=== PATIENT | female | born 1995 | race Caucasian/White ===

== ENCOUNTER 2020-11-01 03:58 | Emergency (ER) | payer BC ==
[2020-11-01] MEDS ORDERED: Ketorolac 60 MG/2 ML SDV IM ONE (04:21)
[2020-11-01] MEDS ORDERED: HYDROmorphone 1 MG/ML Syringe IM ONE (04:21)
--- NOTE | 2020-11-01 04:26 | EDM.PDOC ---
ED HPI GENERAL MEDICAL PROBLEM - General Chief Complaint: Back Pain or Injury Stated Complaint: RT LEG PAIN AND BACK PAIN Time Seen by Provider: 11/01/20 04:16 Source of Information: Reports: Patient History Limitations: Reports: No Limitations - History of Present Illness INITIAL COMMENTS - FREE TEXT/NARRATIVE: The patient presents with right sided low back pain with sciatica. This has been going on for about 1.5months. She did not hurt her back initially. She has some numbness in her leg. She has no weakness. She was given ibuprofen and cyclobenzaprine. The cyclobenzaprine knocks her out. She does not have a primary care doctor yet. Onset: Gradual Duration: Week(s): (6) Location: Reports: Back Quality: Reports: Sharp Severity: Severe Improves with: Reports: Immobilization Worsens with: Reports: Movement Context: Denies: Trauma Associated Symptoms: Reports: No Other Symptoms Back Pain Score (Numeric/FACES): 7 - Related Data Allergies Allergy/AdvReac Type Severity Reaction Status Date / Time No Known Allergies Allergy Verified 11/01/20 04:24 Home Meds: Home Meds Orphenadrine [Norflex] 100 mg PO BID PRN #20 tab 11/01/20 [Rx] Past Medical History Musculoskeletal History: Reports: Back Pain, Chronic - Past Surgical History Female Surgical History: Reports: Section Social & Family History - Tobacco Use Tobacco Use Status *Q: Unknown Ever Used Tobacco ED ROS GENERAL - Review of Systems Review Of Systems: See Below Constitutional: Reports: No Symptoms HEENT: Reports: No Symptoms Respiratory: Reports: No Symptoms Cardiovascular: Reports: No Symptoms Endocrine: Reports: No Symptoms GI/Abdominal: Reports: No Symptoms : Reports: No Symptoms Musculoskeletal: Reports: Back Pain ED EXAM,LOWER BACK PAIN/INJURY - Physical Exam Exam: See Below Exam Limited By: No Limitations General Appearance: Alert, No Apparent Distress Ears: Normal External Exam Nose: Normal Inspection Head: Atraumatic, Normocephalic Neck: Normal Inspection Respiratory/Chest: No Respiratory Distress, Lungs Clear, Normal Breath Sounds Cardiovascular: Regular Rate, Rhythm, No Edema, No Murmur GI/Abdominal: Soft, Non-Tender, No Organomegaly, No Mass Back Exam: Other (Pain upon palpation to the right low back.) Neurological: Alert, No Motor/Sensory Deficits, Oriented x 3 Course - Vital Signs Last Recorded V/S: Last Vital Signs Temp 97.8 F 11/01/20 04:09 Pulse 100 11/01/20 04:09 Resp BP 129/90 11/01/20 04:09 Pulse Ox 97 11/01/20 04:09 - Orders/Labs/Meds Meds: Medications Discontinued Medications Generic Name Dose Route Start Last Admin Trade Name Freq PRN Reason Stop Dose Admin Hydromorphone HCl 1 mg 11/01/20 04:21 11/01/20 04:30 Hydromorphone 1 Mg/Ml Syringe IM 11/01/20 04:22 1 mg ONETIME ONE Administration Ketorolac Tromethamine 60 mg 11/01/20 04:21 11/01/20 04:29 Ketorolac 60 Mg/2 Ml Sdv IM 11/01/20 04:22 60 mg ONETIME ONE Administration - Re-Assessments/Exams Free Text/Narrative Re-Assessment/Exam: 11/01/20 04:25 I ordered dilaudid 1mg IM and toradol 60mg IM. 11/01/20 05:12 She feels a little better. I will give her a different muscle relaxer and see if that helps. Departure - Departure Time of Disposition: 05:20 Disposition: Home, Self-Care 01 Condition: Good Clinical Impression: Sciatica Qualifiers: Laterality: right Qualified Code(s): M54.31 - Sciatica, right side - Discharge Information *PRESCRIPTION DRUG MONITORING PROGRAM REVIEWED*: Not Applicable *COPY OF PRESCRIPTION DRUG MONITORING REPORT IN PATIENT KATHY: Not Applicable Prescriptions: Orphenadrine [Norflex] 100 mg PO BID PRN #20 tab PRN Reason: Pain Referrals: PCP,None [Primary Care Provider] - Beba Marques MD [Physician] - 1 Week Forms: ED Department Discharge Additional Instructions: Stop taking the cyclobenzaprine and try the norflex. Follow up with your chiropractor and Dr Marques. Keep taking the ibuprofen. Please return if you are worse. Sepsis Event Note (ED) - Evaluation Sepsis Screening Result: No Definite Risk - Focused Exam Vital Signs: Vital Signs Temp Pulse BP Pulse Ox 11/01/20 04:09 97.8 F 100 129/90 97
== END 2020-11-01 05:23 | disposition home or self-care (01) ==
LOC: JD.ED 03:58
DX: M54.41 Lumbago with sciatica, right side (principal)
CPT/HCPCS: 96372; 99283; J1170; J1885

== ENCOUNTER 2021-02-18 10:21 | Emergency (ER) | payer BC ==
[2021-02-18] MEDS ORDERED: Sodium Chloride 0.9% 10 ML Syringe FLUSH PRN (11:19)
--- NOTE | 2021-02-18 11:54 | EDM.PDOC ---
ED HPI GENERAL MEDICAL PROBLEM - General Chief Complaint: Respiratory Problem Stated Complaint: COVID +/WORSENING SYMPTOMS Time Seen by Provider: 02/18/21 11:07 Source of Information: Reports: Patient History Limitations: Reports: No Limitations - History of Present Illness INITIAL COMMENTS - FREE TEXT/NARRATIVE: 25-year-old female presents the emergency department today with complaints of worsening Covid symptoms requesting monoclonal antibody treatment. Per the patient's report she tested positive for Covid yesterday. She has not had her Covid vaccine. She states she developed symptoms of Covid day before yesterday. She states she has had progressively worsening cough, shortness of breath, congestion, fever, chills and low backache. She denies any smoking history. She denies any pertinent medical history other than taking meloxicam for sciatic pain. Her primary care provider is Rohini Daniels Generalized Pain Score (Numeric/FACES): 5 - Related Data Allergies Allergy/AdvReac Type Severity Reaction Status Date / Time No Known Allergies Allergy Verified 02/18/21 10:44 Home Meds: Home Meds Meloxicam 15 mg PO DAILY 02/18/21 [History] Past Medical History - Past Health History Medical/Surgical History: Denies Medical/Surgical History Musculoskeletal History: Reports: Back Pain, Chronic - Infectious Disease History Infectious Disease History: Reports: Novel Coronavirus - Past Surgical History Female Surgical History: Reports: Section Social & Family History - Tobacco Use Tobacco Use Status *Q: Never Tobacco User Second Hand Smoke Exposure: No - Caffeine Use Caffeine Use: Reports: Coffee - Recreational Drug Use Recreational Drug Use: No ED ROS GENERAL - Review of Systems Review Of Systems: Comprehensive ROS is negative, except as noted in HPI. ED EXAM, GENERAL - Physical Exam Exam: See Below Exam Limited By: No Limitations General Appearance: Alert, WD/WN, No Apparent Distress Ears: Normal External Exam, Hearing Grossly Normal Nose: Normal Inspection Throat/Mouth: Normal Inspection, Normal Lips, Normal Voice, No Airway Compromise Head: Atraumatic Neck: Normal Inspection, Supple Respiratory/Chest: No Respiratory Distress, Normal Breath Sounds, No Accessory Muscle Use, Chest Non-Tender, Crackles (Fine crackles noted to bilateral bases) Cardiovascular: Normal Peripheral Pulses, Regular Rate, Rhythm, No Edema, No Murmur Peripheral Pulses: 2+: Radial (L), Radial (R) GI/Abdominal: Normal Bowel Sounds, Soft, Non-Tender, No Distention (Female) Exam: Deferred Rectal (Female) Exam: Deferred Back Exam: Normal Inspection Extremities: Normal Inspection Neurological: Alert, Oriented, Normal Cognition Psychiatric: Normal Affect, Normal Mood Skin Exam: Warm, Intact, Normal Color, No Rash, Diaphoretic Lymphatic: No Adenopathy Course - Vital Signs Text/Narrative:: As stated above, patient presents with worsening Covid symptoms and is requesting monoclonal antibody treatment. Upon exam, patient does have fine crackles noted at bilateral bases. She does appear mildly dyspneic at rest however she is hemodynamically stable with O2 saturations at 98%. Physical exam is otherwise unremarkable. Will obtain lab studies to include a CBC, CMP, magnesium, C-reactive protein and a D-dimer. We will also obtain qualitative serum test. Once that is resulted we will obtain a portable chest x- ray. Patient has received information on monoclonal antibody treatment and we will proceed with this once all studies have returned. Last Recorded V/S: Last Vital Signs Temp 98.2 F 02/18/21 10:43 Pulse 118 H 02/18/21 10:43 Resp 20 02/18/21 10:43 BP 167/100 H 02/18/21 10:43 Pulse Ox 98 02/18/21 10:43 - Orders/Labs/Meds Orders: Active Orders 24 hr Category Date Time Status Vital Signs [RC] Q15M Care 02/18/21 12:26 Active Chest 1V Frontal [CR] Stat Exams 02/18/21 12:03 Taken EPINEPHrine [Adrenalin] Med 02/18/21 12:26 Active 0.3 mg IM ASDIRECTED PRN Famotidine [Pepcid] Med 02/18/21 12:26 Active 20 mg IVPUSH ASDIRECTED PRN Sodium Chloride 0.9% [Saline Flush] Med 02/18/21 11:19 Active 10 ml FLUSH ASDIRECTED PRN Sodium Chloride 0.9% [Saline Flush] Med 02/18/21 12:30 Active 30 ml FLUSH ASDIRECTED diphenhydrAMINE [Benadryl] Med 02/18/21 12:26 Active 50 mg IVPUSH ASDIRECTED PRN methylPREDNISolone Sod Succ [Solu-MEDROL] Med 02/18/21 12:26 Active 125 mg IVPUSH ASDIRECTED PRN Saline Lock Insert [OM.PC] Stat Ot 02/18/21 11:19 Ordered Medication Orders Diphenhydramine HCl (Diphenhydramine 50 Mg/Ml Sdv) 50 mg IVPUSH ASDIRECTED PRN PRN Reason: hypersensitivity reaction Epinephrine HCl (Epinephrine 1 Mg/Ml Sdv) 0.3 mg IM ASDIRECTED PRN PRN Reason: hypersensitivity reaction Famotidine (Famotidine 20 Mg/2 Ml Sdv) 20 mg IVPUSH ASDIRECTED PRN PRN Reason: hypersensitivity reaction Methylprednisolone Sodium Succinate (Methylprednisolone Sodium Succinate 125 Mg/2 Ml Sdv) 125 mg IVPUSH ASDIRECTED PRN PRN Reason: hypersensitivity reaction Sodium Chloride (Sodium Chloride 0.9% 10 Ml Syringe) 10 ml FLUSH ASDIRECTED PRN PRN Reason: Keep Vein Open Last Admin: 02/18/21 11:49 Dose: 10 ml Documented by: DAVID Sodium Chloride (Sodium Chloride 0.9% 10 Ml Syringe) 30 ml FLUSH ASDIRECTED MAR Labs: Laboratory Tests 02/18/21 02/18/21 02/18/21 Range/Units 10:40 10:40 10:40 WBC 7.64 (3.98-10.04) K/mm3 RBC 4.45 (3.98-5.22) M/mm3 Hgb 12.9 (11.2-15.7) gm/dl Hct 39.0 (34.1-44.9) % MCV 87.6 (79.4-94.8) fl MCH 29.0 (25.6-32.2) pg MCHC 33.1 (32.2-35.5) g/dl RDW Std Deviation 41.7 (36.4-46.3) fL Plt Count 224 (182-369) K/mm3 MPV 9.8 (9.4-12.3) fl Neut % (Auto) 79.6 H (34.0-71.1) % Lymph % (Auto) 11.6 L (19.3-51.7) % [place] % (Auto) 8.6 (4.7-12.5) % Eos % (Auto) 0.1 L (0.7-5.8) Baso % (Auto) 0.0 L (0.1-1.2) % Neut # (Auto) 6.07 (1.56-6.13) K/mm3 Lymph # (Auto) 0.89 L (1.18-3.74) K/mm3 [place] # (Auto) 0.66 H (0.24-0.36) K/mm3 Eos # (Auto) 0.01 L (0.04-0.36) K/mm3 Baso # (Auto) 0.00 L (0.01-0.08) K/mm3 D-Dimer, Quantitative 0.69 H (0.19-0.50) mg/L Sodium (136-145) mEq/L Potassium (3.5-5.1) mEq/L Chloride (98-107) mEq/L Carbon Dioxide (21-32) mEq/L Anion Gap (5-15) BUN (7-18) mg/dL Creatinine (0.55-1.02) mg/dL Est Cr Clr Drug Dosing mL/min Estimated GFR (MDRD) (>60) mL/min BUN/Creatinine Ratio (14-18) Glucose (70-99) mg/dL Calcium (8.5-10.1) mg/dL Magnesium (1.8-2.4) mg/dL Total Bilirubin (0.2-1.0) mg/dL AST (15-37) U/L ALT (14-59) U/L Alkaline Phosphatase (46-116) U/L C-Reactive Protein (<1.0) mg/dL Total Protein (6.4-8.2) g/dl Albumin (3.4-5.0) g/dl Globulin gm/dL Albumin/Globulin Ratio (1-2) HCG, Qual Negative (NEGATIVE) 02/18/21 Range/Units 10:40 WBC (3.98-10.04) K/mm3 RBC (3.98-5.22) M/mm3 Hgb (11.2-15.7) gm/dl Hct (34.1-44.9) % MCV (79.4-94.8) fl MCH (25.6-32.2) pg MCHC (32.2-35.5) g/dl RDW Std Deviation (36.4-46.3) fL Plt Count (182-369) K/mm3 MPV (9.4-12.3) fl Neut % (Auto) (34.0-71.1) % Lymph % (Auto) (19.3-51.7) % [place] % (Auto) (4.7-12.5) % Eos % (Auto) (0.7-5.8) Baso % (Auto) (0.1-1.2) % Neut # (Auto) (1.56-6.13) K/mm3 Lymph # (Auto) (1.18-3.74) K/mm3 [place] # (Auto) (0.24-0.36) K/mm3 Eos # (Auto) (0.04-0.36) K/mm3 Baso # (Auto) (0.01-0.08) K/mm3 D-Dimer, Quantitative (0.19-0.50) mg/L Sodium 136 (136-145) mEq/L Potassium 3.5 (3.5-5.1) mEq/L Chloride 103 (98-107) mEq/L Carbon Dioxide 23 (21-32) mEq/L Anion Gap 13.5 (5-15) BUN 8 (7-18) mg/dL Creatinine 0.9 (0.55-1.02) mg/dL Est Cr Clr Drug Dosing 96.39 mL/min Estimated GFR (MDRD) > 60 (>60) mL/min BUN/Creatinine Ratio 8.9 L (14-18) Glucose 128 H (70-99) mg/dL Calcium 8.5 (8.5-10.1) mg/dL Magnesium 2.0 (1.8-2.4) mg/dL Total Bilirubin 0.5 (0.2-1.0) mg/dL AST 16 (15-37) U/L ALT 31 (14-59) U/L Alkaline Phosphatase 55 (46-116) U/L C-Reactive Protein 8.8 H* (<1.0) mg/dL Total Protein 7.6 (6.4-8.2) g/dl Albumin 3.6 (3.4-5.0) g/dl Globulin 4.0 gm/dL Albumin/Globulin Ratio 0.9 L (1-2) HCG, Qual (NEGATIVE) Meds: Medications Generic Name Dose Route Start Last Admin Trade Name Freq PRN Reason Stop Dose Admin Diphenhydramine HCl 50 mg 02/18/21 12:26 Diphenhydramine 50 Mg/Ml Sdv IVPUSH ASDIRECTED PRN hypersensitivity reaction Epinephrine HCl 0.3 mg 02/18/21 12:26 Epinephrine 1 Mg/Ml Sdv IM ASDIRECTED PRN hypersensitivity reaction Famotidine 20 mg 02/18/21 12:26 Famotidine 20 Mg/2 Ml Sdv IVPUSH ASDIRECTED PRN hypersensitivity reaction Methylprednisolone Sodium Succinate 125 mg 02/18/21 12:26 Methylprednisolone Sodium Succinate 125 Mg/2 Ml Sdv IVPUSH ASDIRECTED PRN hypersensitivity reaction Sodium Chloride 10 ml 02/18/21 11:19 02/18/21 11:49 Sodium Chloride 0.9% 10 Ml Syringe FLUSH 10 ml ASDIRECTED PRN Administration Keep Vein Open Sodium Chloride 30 ml 02/18/21 12:30 Sodium Chloride 0.9% 10 Ml Syringe FLUSH ASDIRECTED MAR Discontinued Medications Generic Name Dose Route Start Last Admin Trade Name Freq PRN Reason Stop Dose Admin CASIRIVIMAB/IMDEVIMAB 10 ml/ 110 mls @ 220 mls/hr 02/18/21 12:26 02/18/21 12:58 Sodium Chloride IV 02/18/21 12:55 220 mls/hr ONETIME ONE Administration - Re-Assessments/Exams Free Text/Narrative Re-Assessment/Exam: 02/18/21 12:25 Nothing acute is appreciated on portable chest x-ray. Formal radiologist report is pending. I spoke with the patient to provide information about Regeneron treatment for herself. I offered her the patient and caregiver [employer] fax sheet to read and review. I stated the drug has been approved by an emergency use authorization process and has not been fully FDA approved or reviewed. The patient meets the EUA requirements. I discussed there are other potential treatment options that are currently not FDA approved to treat COVID-19. Offered opportunity to ask questions and all questions were answered. The patient voiced understanding and agreed to proceed with the treatment for herself. 02/18/21 12:27 Lab studies reveal a WBC of 7.64, hemoglobin 12.9, hematocrit 39.0, platelet count 224, D-dimer 0.69, sodium 136, potassium 3.5, anion gap 13.5, BUN 8, creatinine 0.9, GFR greater than 60, glucose 128, C-reactive protein 8.8 10/30/21 14:36 Patient did receive monoclonal antibody treatment and was observed for 1 hour after. She tolerated the infusion well. She will be discharged home. Departure - Departure Time of Disposition: 14:37 Disposition: Home, Self-Care 01 Condition: Good Clinical Impression: COVID-19 - Discharge Information Referrals: Rohini Daniels NP [Primary Care Provider] - Forms: ED Department Discharge Additional Instructions: You were seen in the emergency department today with worsening Covid symptoms. Lab studies were completed which were unremarkable. Chest x-ray was also unremarkable, there does not appear to be any signs of pneumonia in your lungs thus far that is common with Covid. You did receive antibody treatment while in the emergency department and tolerated it well. You do need to continue with quarantine for 10 full days. Be sure to get plenty of rest and drink plenty of fluids. May take Tylenol or ibuprofen for fever or body aches. Sepsis Event Note (ED) - Focused Exam Vital Signs: Vital Signs Temp Pulse Resp BP Pulse Ox 02/18/21 10:43 98.2 F 118 H 20 167/100 H 98 - My Orders Last 24 Hours: My Active Orders 02/18/21 11:19 Sodium Chloride 0.9% [Saline Flush] 10 ml FLUSH ASDIRECTED PRN Saline Lock Insert [OM.PC] Stat 02/18/21 12:03 Chest 1V Frontal [CR] Stat 02/18/21 12:26 Vital Signs [RC] Q15M EPINEPHrine [Adrenalin] 0.3 mg IM ASDIRECTED PRN Famotidine [Pepcid] 20 mg IVPUSH ASDIRECTED PRN diphenhydrAMINE [Benadryl] 50 mg IVPUSH ASDIRECTED PRN methylPREDNISolone Sod Succ [Solu-MEDROL] 125 mg IVPUSH ASDIRECTED PRN 02/18/21 12:30 Sodium Chloride 0.9% [Saline Flush] 30 ml FLUSH ASDIRECTED - Assessment/Plan Last 24 Hours: My Active Orders 02/18/21 11:19 Sodium Chloride 0.9% [Saline Flush] 10 ml FLUSH ASDIRECTED PRN Saline Lock Insert [OM.PC] Stat 02/18/21 12:03 Chest 1V Frontal [CR] Stat 02/18/21 12:26 Vital Signs [RC] Q15M EPINEPHrine [Adrenalin] 0.3 mg IM ASDIRECTED PRN Famotidine [Pepcid] 20 mg IVPUSH ASDIRECTED PRN diphenhydrAMINE [Benadryl] 50 mg IVPUSH ASDIRECTED PRN methylPREDNISolone Sod Succ [Solu-MEDROL] 125 mg IVPUSH ASDIRECTED PRN 02/18/21 12:30 Sodium Chloride 0.9% [Saline Flush] 30 ml FLUSH ASDIRECTED
[2021-02-18] MEDS ORDERED: methylPREDNISolone Sodium Succinate 125 MG/2 ML SDV IVPUSH PRN (12:26)
[2021-02-18] MEDS ORDERED: Famotidine 20 MG/2 ML SDV IVPUSH PRN (12:26)
[2021-02-18] MEDS ORDERED: EPINEPHrine 1 MG/ML SDV IM PRN (12:26)
[2021-02-18] MEDS ORDERED: diphenhydrAMINE 50 MG/ML SDV IVPUSH PRN (12:26)
[2021-02-18] MEDS ORDERED: Sodium Chloride 0.9% 10 ML Syringe FLUSH SCH (12:30)
--- NOTE | 2021-02-19 08:10 | CR ---
Chest: Portable view of the chest was obtained. Comparison: No prior chest imaging is available. Heart size and mediastinum are normal. Lungs are clear with no acute parenchymal change. Bony structures are grossly intact. Impression: 1. Nothing acute is seen on frontal chest x-ray. Diagnostic code #1
== END 2021-02-18 14:52 | disposition home or self-care (01) ==
LOC: JD.ED 10:21
DX: U07.1 COVID-19 (principal)
CPT/HCPCS: 36415; 71045; 80053; 83735; 84703; 85025; 85379; 86140; 99285; M0243; Q0243

== ENCOUNTER 2022-04-04 08:00 | Inpatient (IN) | payer BC ==
[2022-04-06] MEDS ORDERED: Sodium Chloride 0.9% 10 ML Syringe FLUSH PRN (01:55)
[2022-04-06] MEDS ORDERED: Oxytocin/Lactated Ringers 10 UNIT/1,000 ML BAG IV SCH (02:00)
[2022-04-06] MEDS ORDERED: Lactated Ringers 1,000 ML IV SCH (05:00)
[2022-04-06] MEDS ORDERED: Metoclopramide 10 MG/2 ML SDV IVPUSH ONE (06:30)
[2022-04-06] MEDS ORDERED: Citric Acid/Sodium Citrate Solution 30 ML Cup PO ONE (06:30)
[2022-04-06] MEDS ORDERED: ceFAZolin 2 GM in Sodium Chloride 0.9% 50 ML IV ONE (07:00)
[2022-04-06] MEDS ORDERED: Metoclopramide 10 MG/2 ML SDV ONE (07:13)
[2022-04-06] MEDS ORDERED: Citric Acid/Sodium Citrate Solution 30 ML Cup ONE (07:13)
[2022-04-06] MEDS ORDERED: Lactated Ringers 1,000 ML ONE ×2 (07:14→08:17)
[2022-04-06] MEDS ORDERED: Bupivacaine 0.5% 30 ML SDV ONE (07:18)
[2022-04-06] MEDS ORDERED: Morphine PF 10 MG/10 ML SDV ONE (07:32)
[2022-04-06] MEDS ORDERED: fentaNYL 100 MCG/2 ML SDV ONE (07:32)
[2022-04-06] MEDS ORDERED: ceFAZolin 2 GM Vial ONE (07:34)
[2022-04-06] MEDS ORDERED: Phenylephrine HCl In 0.9% NaCl 1 MG/10 ML Vial ONE (07:58)
[2022-04-06] MEDS ORDERED: Oxytocin 10 Units/1 ML SDV ONE (08:09)
[2022-04-06] MEDS ORDERED: diphenhydrAMINE 50 MG/ML SDV IVPUSH PRN ×2 (08:32→11:32)
[2022-04-06] MEDS ORDERED: fentaNYL 100 MCG/2 ML SDV IVPUSH PRN (08:32)
[2022-04-06] MEDS ORDERED: Ondansetron 4 MG/2 ML SDV IVPUSH PRN (08:32)
[2022-04-06] MEDS ORDERED: Ondansetron 4 MG/2 ML SDV ONE (08:37)
[2022-04-06] MEDS ORDERED: Ketorolac 30 MG/ML SDV ONE (08:37)
[2022-04-06] MEDS ORDERED: ePHEDrine 50 MG/ML SDV IVPUSH PRN (11:32)
[2022-04-06] MEDS ORDERED: Acetaminophen/oxyCODONE 325-5 MG Tab PO PRN (11:32)
[2022-04-06] MEDS ORDERED: Dextrose 5%-Lactated Ringers 1,000 ML IV SCH (11:32)
[2022-04-06] MEDS ORDERED: Naloxone 0.4 MG/ML SDV IVPUSH PRN (11:32)
[2022-04-06] MEDS ORDERED: Ondansetron 4 MG/2 ML SDV IV PRN (11:32)
[2022-04-06] MEDS ORDERED: Docusate Sodium 100 MG Cap PO PRN (11:32)
[2022-04-06] MEDS: Simethicone 80 MG Tab.Chew PO SCH ×3 (13:27→21:16)
[2022-04-06] MEDS: Ibuprofen 800 MG Tab PO SCH ×2 (14:50→21:15)
[2022-04-07] MEDS: Ibuprofen 800 MG Tab PO SCH ×3 (05:47→22:47)
[2022-04-07] MEDS: Simethicone 80 MG Tab.Chew PO SCH ×4 (10:48→21:28)
[2022-04-07] MEDS: Prenatal Multivitamin with Calcium/Folic Acid/Iron Tab PO SCH (10:48)
[2022-04-07] MEDS: Acetaminophen/oxyCODONE 325-5 MG Tab PO PRN ×2 (12:38→22:57)
[2022-04-08] MEDS: Ibuprofen 800 MG Tab PO SCH (06:19)
[2022-04-08] MEDS: Acetaminophen/oxyCODONE 325-5 MG Tab PO PRN (07:56)
[2022-04-08] MEDS: Simethicone 80 MG Tab.Chew PO SCH (08:03)
[2022-04-08] MEDS: Prenatal Multivitamin with Calcium/Folic Acid/Iron Tab PO SCH (08:03)
== END 2022-04-08 10:15 | disposition home or self-care (01) | DRG 540 ==
LOC: JD.OB 04-06 05:34
PROVIDERS: ADMIT Obstetrics & Gynecology; ATTEND Obstetrics & Gynecology
PROC: 10D00Z1 Extraction of Products of Conception, Low, Open Approach (ICD-10-PCS; principal; 2022-04-06)
DX: O34.211 Maternal care for low transverse scar from previous cesarean delivery (principal); G89.29 Other chronic pain; M54.9 Dorsalgia, unspecified; O99.214 Obesity complicating childbirth; Z3A.39 39 weeks gestation of pregnancy; Z37.0 Single live birth; Z79.899 Other long term (current) drug therapy; Z79.82 Long term (current) use of aspirin; Z86.16 Personal history of COVID-19; Z87.59 Personal history of other complications of pregnancy, childbirth and the puerperium; O69.81X0 Labor and delivery complicated by cord around neck, without compression, not applicable or unspecified
CPT/HCPCS: 01961; 36415; 59025; 59409; 85025; 86592; 86850; 86900; 86901; 94762; A9270-GY; J0690; J1885; J2274; J2405; J2590; J2765; J3010; J3490; J7120; J7121

== ENCOUNTER 2024-11-04 10:10 | Emergency (ER) | payer BC ==
[2024-11-04] MEDS ORDERED: Naloxone 0.4 MG/ML SDV IVPUSH PRN (10:44)
[2024-11-04] MEDS: Sodium Chloride 0.9% 10 ML Syringe FLUSH PRN (11:10)
[2024-11-04 11:15] LABS: BASOPHILS ABSOLUTE AUTO 0.0 K/mm3 (0.0-0.2); BASOPHILS PERCENT AUTO 0.3 % (0.0-1.0); EOSINOPHILS ABSOLUTE AUTO 0.1 K/mm3 (0.0-0.4); EOSINOPHILS PERCENT AUTO 0.6 % (0.0-6.0); IMMATURE GRAN ABSOLUTE AUTO 0.04 K/mm3 (0.00-0.05); IMMATURE GRAN PERCENT AUTO 0.3 % (0.0-0.4); LYMPHOCYTES ABSOLUTE AUTO 2.1 K/mm3 (1.0-4.8); LYMPHOCYTES PERCENT AUTO 17.6 % (24.0-44.0); MEAN PLATELET VOLUME 9.6 fl (9.4-12.3); MONOCYTES ABSOLUTE AUTO 0.8 K/mm3 (0.0-0.8); MONOCYTES PERCENT AUTO 6.4 % (0.0-8.0); NEUTROPHILS ABSOLUTE AUTO 9.0 K/mm3 (1.8-7.7); NEUTROPHILS PERCENT AUTO 74.8 % (41.0-71.0); NRBC ABSOLUTE 0.00 (0.00-0.02); NRBC PERCENT 0.0 % (0.0-0.2); PLATELET COUNT,PLT 244 K/mm3 (150-400); RED BLOOD CELL COUNT 4.92 M/mm3 (4.10-5.30); WHITE BLOOD CELL COUNT,WBC 12.08 K/mm3 (3.9-11.3)
[2024-11-04] MEDS: Ketorolac 30 MG/ML SDV IVPUSH ONE (11:25)
[2024-11-04 11:35] LABS: A/G RATIO 1.0 (1-2); ALANINE AMINOTRANSFERASE,ALT 23.0 U/L (14-59); ASPARTATE AMNIOTRANSFERASE,AST 14.0 U/L (15-37); BILIRUBIN TOTAL 1.2 mg/dL (0.2-1.0); BLOOD UREA NITROGEN,BUN 10.0 mg/dL (7-18); CARBON DIOXIDE,CO2 26.0 mEq/L (21-32); CHLORIDE,CL 103.0 mEq/L (98-107); CREATININE 0.6 mg/dL (0.55-1.02); EST CRCL DRUG DOSING (CG) 140.82 mL/min; ESTIMATED GFR 125.0 mL/min (>60); GLUCOSE RANDOM 90.0 mg/dL (70-99); POTASSIUM,K 4.1 mEq/L (3.5-5.1); PROTEIN TOTAL,TP 8.1 g/dl (6.4-8.2); SODIUM,NA 140.0 mEq/L (136-145)
== END 2024-11-04 14:45 | disposition home or self-care (01) ==
LOC: JD.ED 10:10
DX: L02.411 Cutaneous abscess of right axilla (principal); Z79.899 Other long term (current) drug therapy; Z88.8 Allergy status to other drugs, medicaments and biological substances; Z86.16 Personal history of COVID-19
CPT/HCPCS: 10060; 36415; 80053; 85025; 87070; 87075; 87205; 96374; 96375; 99283; J0696; J1885; J2003; J2270; 99284